=== PATIENT | male | born 1985 | race Caucasian/White ===

== ENCOUNTER 2017-10-22 15:07 | Emergency (ER) | payer MEDICAID ==
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
[2017-10-22 15:57] LABS: Hemoglobin 16.4 gm/dL (13.5-18.0); Mean Cell Volume 85.8 fl (78-100); Mean Corpuscular Hemoglobin 30.6 pg (27-31); Mean Corpuscular Hgb Conc 35.7 g/dl (32-36); Mean Platelet Volume 9.7 fl (6.0-9.5); Neutrophil # 5.9 K/mm3 (1.3-6.0); Neutrophil % 46.7 % (42-75.0); Platelet Count 375 K/mm3 (150-450); Red Blood Count 5.36 M/mm3 (4.7-6.0); Red Cell Distribution Width 13.5 % (11.5-14.0); White Blood Count 12.7 K/mm3 (4.0-10.5)
[2017-10-22 16:05] LABS: Total Cells Counted 100
[2017-10-22 16:06] LABS: Albumin * 4.2 gm/dl (3.4-5.0); Alkaline Phosphatase * 93 U/L (50-170); BUN/Creatinine Ratio 13.5 (9.0-21.6); Bilirubin, Total 0.4 mg/dL (0.0-1.1); Blood Urea Nitrogen 13 mg/dL (6-23); Ca. Corrected For Albumin 8.4 mg/dL (8.4-10.2); Calcium * 8.9 mg/dL (7.9-10.9); Carbon Dioxide 25.2 mmol/L (24-32.6); Chloride 106 mmol/L (97-106); Glucose * 130 mg/dL (70-110); Potassium 3.2 mmol/L (3.4-4.6); Sodium 144 mmol/L (132-142); Total Protein 8.3 gm/dL (6.2-8.2)
[2017-10-22 16:16] LABS: Atypical (Reactive) Lymph 3 % (0-2); Eosinophil 1 % (0-3); Lymphocyte 36 % (20-51); Monocyte 6 % (0-9); Neutrophil 54 % (42-75); Neutrophil # 6.9 K/mm3 (1.3-6.0)
[2017-10-22 16:19] LABS: Dohle Bodies 1+
[2017-10-22 16:24] LABS: AST 57 U/L (0-48)
[2017-10-22] MEDS ORDERED: KETOROLAC TROMETHAMINE 30 MG/ML VIAL IV ONE (16:40)
[2017-10-22] MEDS ORDERED: KETOROLAC TROMETHAMINE 30 MG/ML VIAL ONE (16:42)
[2017-10-22 17:05] LABS: Cocaine Ur Negative (NEGATIVE); Urine Barbiturate Negative (NEGATIVE); Urine Benzodiazepines Negative (NEGATIVE); Urine Opiates Negative (NEGATIVE); Urine PCP Negative (NEGATIVE); Urine THC Negative (NEGATIVE)
[2017-10-22 18:05] LABS: ALT 55 U/L (19-67)
[2017-10-22 23:18] VITALS: BP 137/89
== END 2017-10-22 17:01 | disposition home or self-care (01) ==
LOC: ER 15:07
DX: V43.53XA Car driver injured in collision with pick-up truck in traffic accident, initial encounter; S01.512A Laceration without foreign body of oral cavity, initial encounter; Y92.410 Unspecified street and highway as the place of occurrence of the external cause; S02.2XXA Fracture of nasal bones, initial encounter for closed fracture
CPT/HCPCS: 36415; 70450; 70486; 71046; 72125; 80053; 80307; 85007; 85025; 96374; 99284; G0481